=== PATIENT | female | born 1965 | race Hispanic/Latino ===

== ENCOUNTER 2017-11-29 12:57 | Inpatient (IN) | payer MEDICAID ==
[2017-11-29 13:42] LABS: BASO % 0.7 % (0.0-2.0); EOS # 0.1 K/uL (0.0-0.7); EOS % 2.2 % (0.0-4.0); HEMOGLOBIN 12.2 g/dL (11.0-16.0); LYMPH # 1.9 K/uL (1.0-4.3); LYMPH % 31.4 % (20.0-40.0); MEAN CELL VOLUME 91.6 fL (81.0-99.0); MEAN CORPUSCULAR HEMOGLOBIN 31.5 pg (27.0-31.0); MEAN CORPUSCULAR HGB CONC 34.4 g/dL (33.0-37.0); MEAN PLATELET VOLUME 8.3 fL (7.2-11.7); MONO # 0.5 K/uL (0.0-0.8); MONO % 8.2 % (0.0-10.0); NEUT # 3.5 K/uL (1.8-7.0); NEUT % 57.5 % (50.0-75.0); RBC 3.86 Mil/uL (3.80-5.20); RED CELL DISTRIBUTION WIDTH 13.1 % (11.5-14.5); WHITE BLOOD COUNT 6.1 K/uL (4.8-10.8)
[2017-11-29 13:55] LABS: SQUAMOUS EPITHIAL 31 /hpf (0-5); URINE BACTERIA RARE (<OCC); URINE BILIRUBIN NEGATIVE (NEGATIVE); URINE BLOOD NEGATIVE (NEGATIVE); URINE CLARITY Hazy (Clear); URINE COLOR Yellow (YELLOW); URINE GLUCOSE (UA) NORMAL (Normal); URINE LEUKOCYTE ESTERASE TRACE Leu/uL (Negative); URINE PROTEIN NEGATIVE (NEGATIVE); URINE UROBILINOGEN NORMAL mg/dL (0.2-1.0)
[2017-11-29 14:00] LABS: ALB/GLOB RATIO 1.5 (1.0-2.1); ALBUMIN 4.3 g/dL (3.5-5.0); ALT/SGPT 32 U/L (9-52); AST/SGOT 26 U/L (14-36); BLOOD UREA NITROGEN 13 mg/dL (7-17); CALCIUM 9.5 mg/dl (8.6-10.4); GFR AFRICAN-AMERICAN > 60; GFR NON-AFRICAN AMERICAN > 60
[2017-11-29 14:10] LABS: BENZODIAZEPINES, UR NEGATIVE (NEGATIVE); OPIATES, UR NEGATIVE (NEGATIVE); PHENCYCLIDINE, UR NEGATIVE (NEGATIVE)
[2017-11-29 14:30] LABS: BARBITURATES, UR POSITIVE (NEGATIVE)
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
[2017-11-29] MEDS: Naproxen 550 mg Tab PO PRN (18:22)
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
[2017-11-29] MEDS: Prazosin HCL 2 mg PO SCH (21:21)
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
[2017-11-30] MEDS: buPROPion 150 mg/24 Hours XL Tab PO SCH (12:07)
[2017-11-30] MEDS: Furosemide 10 mg/mL LIQ (60mL) PO SCH (12:43)
[2017-11-30] MEDS: Prazosin HCL 2 mg PO SCH (21:29)
[2017-11-30] MEDS ORDERED: Trolamine Salicylate 10% Cream (85 gm) TOP SCH (22:00)
[2017-12-01 06:14] VITALS: O2SAT 98
[2017-12-01] MEDS: Naproxen 550 mg Tab PO PRN (07:28)
[2017-12-01] MEDS: buPROPion 150 mg/24 Hours XL Tab PO SCH (09:29)
[2017-12-01] MEDS: Furosemide 10 mg/mL LIQ (60mL) PO SCH (10:07)
--- NOTE | 2017-12-01 13:16 | PCM.PYCHPN ---
Psychiatric Progress Note - Psychiatric Progress Note Patient seen today, length of contact: 15 min Patient Chief Complaint: I m feeling very depressed.' Problems Identified/Issues Discussed: Patient seen and evaluated, chart reviewed and discussed with the nurse. Patient remained depressed, and still reports depressed mood and at times feelings of hopelessness and helplessness. She also reports some irritability, racing thoughts and anxiety. She is taking medication and reports feeling sleepy because of Seroquel in the daytime. She needs to stay longer for further stabilization. Supportive therapy and psychoeducation were given Medication Change: Yes (DC Seroquel) Medical Record Reviewed: Yes Mental Status Examination - Cognitive Function Orientation: Person, Place, Situation, Time Memory: Intact Attention: WNL Concentration: Poor Association: WNL Fund of Knowledge: Poor - Mood Mood: Depressed, Anxious - Affect Affect: Constricted, Depressed - Speech Speech: Soft - Formal Thought Process Formal Thought Process: Paranoia - Suicidal Ideation Suicidal Ideation: No - Homicidal Ideation Homicidal Ideation: No Goal/Treatment Plan - Goal/Treatment Plan Need for Continued Stay: Severe depression anxiety, Severe functional impairment Progress Toward Problem(s) and Goals/Treatment Plan: Bipolar disorder mixed severe with psychotic features PTSD chronic Opiate use disorder severe in remission CBT Psychoeducation Supportive therapy, individual therapy DC Seroquel 50 mg by mouth daily Seroquel 200 mg by mouth daily at bedtime Wellbutrin 150 mg daily Hydroxyzine 25 mg PO Q6 hrprn Remeron 30 mg by mouth daily at bedtime Prazosin 2 mg by mouth daily at bedtime Neurontin 300 mg by mouth TID Cymbalta 120 mg by mouth daily HTN Continue prescribed medications Monitor for signs and symptoms - Smoking Cessation Smoking Cessation Initiated: No
[2017-12-01] MEDS ORDERED: Trolamine Salicylate 10% Cream (85 gm) TOP SCH (16:15)
[2017-12-01] MEDS ORDERED: Trolamine Salicylate 10% Cream (85 gm) TOP PRN (16:22)
[2017-12-01] MEDS: Prazosin HCL 2 mg PO SCH (22:32)
[2017-12-02] MEDS: Furosemide 10 mg/mL LIQ (60mL) PO SCH (09:18)
[2017-12-02] MEDS: buPROPion 150 mg/24 Hours XL Tab PO SCH (09:19)
--- NOTE | 2017-12-02 16:12 | PCM.PYCHPN ---
Psychiatric Progress Note - Psychiatric Progress Note Patient seen today, length of contact: 15 min Patient Chief Complaint: "I'm fine" Problems Identified/Issues Discussed: The pt is seen, chart reviewed, case discussed with staff. Pt stated that she is feeling better after admission in the hospital. The pt is compliant with medications and reports no side-effects. Symptoms are improving but needs more time to stabilize. After care discussed, support and psychoeducation given. Medication Change: No Mental Status Examination - Cognitive Function Orientation: Person, Place, Situation, Time Memory: Intact Attention: WNL Concentration: Poor Association: WNL Fund of Knowledge: Poor Decription of patient's judgement and insights: improving/improving - Mood Mood: Depressed, Anxious - Affect Affect: Constricted, Depressed - Speech Speech: Soft - Formal Thought Process Formal Thought Process: Paranoia - Suicidal Ideation Suicidal Ideation: No Plan: denied - Homicidal Ideation Homicidal Ideation: No Plan: denied Goal/Treatment Plan - Goal/Treatment Plan Need for Continued Stay: Severe depression anxiety, Severe functional impairment Progress Toward Problem(s) and Goals/Treatment Plan: Continue medications Support and psychoeducation daily Attend groups and activities daily After care planning by - Smoking Cessation Smoking Cessation Initiated: Yes
[2017-12-02] MEDS: Prazosin HCL 2 mg PO SCH (21:19)
[2017-12-03 06:16] VITALS: RESP 20
[2017-12-03] MEDS: Furosemide 10 mg/mL LIQ (60mL) PO SCH (09:11)
[2017-12-03] MEDS: buPROPion 150 mg/24 Hours XL Tab PO SCH (09:12)
--- NOTE | 2017-12-03 14:18 | PCM.PYCHPN ---
Psychiatric Progress Note - Psychiatric Progress Note Patient seen today, length of contact: 15 min Patient Chief Complaint: "I'm good" Problems Identified/Issues Discussed: The pt is seen, chart reviewed, case discussed with staff. Pt stated that she is feeling good. Pt stated that she is positive regarding her future. She is future oriented and stated that she will attend AA meeting, NA meeting after discharge. Additionally, she stated that she will find a sponsor. The pt is compliant with medications and reports no side-effects. Symptoms are improving but needs more time to stabilize. After care discussed, support and psychoeducation given. Medication Change: No Medical Record Reviewed: Yes Mental Status Examination - Cognitive Function Orientation: Person, Place, Situation, Time Memory: Intact Attention: WNL Concentration: Poor Association: WNL Fund of Knowledge: Poor Decription of patient's judgement and insights: improving/improving - Mood Mood: Depressed, Anxious - Affect Affect: Constricted, Depressed - Speech Speech: Soft - Formal Thought Process Formal Thought Process: Paranoia - Suicidal Ideation Suicidal Ideation: No Plan: denied - Homicidal Ideation Homicidal Ideation: No Plan: denied Goal/Treatment Plan - Goal/Treatment Plan Need for Continued Stay: Severe depression anxiety, Severe functional impairment Progress Toward Problem(s) and Goals/Treatment Plan: Continue medications Support and psychoeducation daily Attend groups and activities daily After care planning by SAUL - Smoking Cessation Smoking Cessation Initiated: Yes
[2017-12-03] MEDS: Prazosin HCL 2 mg PO SCH (21:19)
[2017-12-04] MEDS: buPROPion 150 mg/24 Hours XL Tab PO SCH (09:00)
[2017-12-04] MEDS: Furosemide 10 mg/mL LIQ (60mL) PO SCH (09:00)
[2017-12-04] MEDS: Prazosin HCL 2 mg PO SCH (21:07)
[2017-12-04] MEDS: Naproxen 550 mg Tab PO PRN (21:09)
[2017-12-05 06:10] VITALS: TEMP 98.5
[2017-12-05 09:18] VITALS: BP 122/75; PULSE 62
[2017-12-05] MEDS: Furosemide 10 mg/mL LIQ (60mL) PO SCH (09:19)
[2017-12-05] MEDS: buPROPion 150 mg/24 Hours XL Tab PO SCH (09:19)
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
== END 2017-12-05 11:25 | disposition home or self-care (01) | DRG 430 ==
LOC: C.ER 12:57 → C.5E 15:29
PROVIDERS: ADMIT Psychiatry & Neurology Psychiatry; ATTEND Psychiatry & Neurology Psychiatry
PROC: GZ3ZZZZ Medication Management (ICD-10-PCS; principal; 2017-11-29)
PROC: GZHZZZZ Group Psychotherapy (ICD-10-PCS; 2017-11-29)
PROC: GZ56ZZZ Individual Psychotherapy, Supportive (ICD-10-PCS; 2017-11-29)
DX: F31.64 Bipolar disorder, current episode mixed, severe, with psychotic features (principal); F43.12 Post-traumatic stress disorder, chronic; F11.21 Opioid dependence, in remission; R45.851 Suicidal ideations; R45.850 Homicidal ideations; F17.200 Nicotine dependence, unspecified, uncomplicated; I10 Essential (primary) hypertension; J45.909 Unspecified asthma, uncomplicated